=== PATIENT | female | born 1970 | race Caucasian/White ===

== ENCOUNTER 2023-02-05 10:02 | Day surgery (SDC) | payer OTHER ==
[~2023-02-05] VITALS: Ht 163.8 cm; Wt 96.8 kg
[~2023-02-05 10:02] MED LIST: SODIUM CHLORIDE 0.9% 1,000 ML ONE
[2023-02-05] MEDS ORDERED: LIDOCAINE/PF 2% 5 ML VIAL IM ONE (10:03)
[2023-02-05] MEDS ORDERED: PROPOFOL 1% 20 ML VIAL IVP ONE (10:03)
[2023-02-05 10:42] LABS: GLUCOMETER DEV NAME(LOC) SDS.; GLUCOSE,POINT OF CARE 141 MG/DL (70-110)
[2023-02-05] MEDS ORDERED: HYDR-3831 PO (10:56)
[2023-02-05] MEDS ORDERED: EMPA25TA3 PO (10:56)
[2023-02-05] MEDS ORDERED: METF-1211 PO (10:56)
[2023-02-05] MEDS ORDERED: LISI-894 PO (10:56)
[2023-02-05] MEDS ORDERED: METO50 PO (10:56)
[2023-02-05] MEDS ORDERED: VENL-67 PO (10:56)
[2023-02-05] MEDS ORDERED: ALBU18HF12 IH (10:56)
[2023-02-05] MEDS ORDERED: MONT-35 PO (10:56)
[2023-02-05] MEDS ORDERED: ATOR40TA28 PO (10:56)
[2023-02-05] MEDS ORDERED: SODIUM CHLORIDE 0.9% 1,000 ML IV ONE (11:00)
== END 2023-02-05 16:30 | disposition home or self-care (01) ==
LOC: SURGERY 10:02
PROVIDERS: ATTEND Internal Medicine Gastroenterology
DX: Z12.11 Encounter for screening for malignant neoplasm of colon (principal); D12.3 Benign neoplasm of transverse colon; I10 Essential (primary) hypertension; E66.9 Obesity, unspecified; K63.89 Other specified diseases of intestine; K64.8 Other hemorrhoids; E11.9 Type 2 diabetes mellitus without complications; Z88.8 Allergy status to other drugs, medicaments and biological substances
CPT/HCPCS: 45385; 88305; 82962; C1769; J2704; J3490; J7030